=== PATIENT | female | born 1995 | race Caucasian/White ===

== ENCOUNTER 2019-08-30 11:49 | Outpatient (CLI) | payer OTHER, SELFPAY ==
--- NOTE | ~2019-08-30 | US_ITS ---
EXAMINATION: US breast RT limited HISTORY: Palpable lump of the lower right breast at the 6:00 location. TECHNIQUE: Limited right breast ultrasound is performed. FINDINGS: There is no evidence of focal abnormal cystic or solid mass in the vicinity of the reported palpable abnormality of concern. IMPRESSION: No specific sonographic correlate is identified for the reported palpable abnormality of concern. Fur ther evaluation at this time should be based on clinical assessment. Continued follow-up physical exa mination is recommended. BI-RADS Category 1: Negative Reviewed, dictated and finalized at location A. IMPRESSION: No specific sonographic correlate is identified for the reported palpable abnor mality of concern. Further evaluation at this time should be based on clinical assessment. Continued follow-up physical examination is recommended. BI-RADS Category 1: Negative
== END 2019-08-30 11:50 | disposition home or self-care (01) ==
PROVIDERS: PCP Family Medicine; Visit Provider Obstetrics & Gynecology
DX: N63.0 Unspecified lump in unspecified breast (principal)
CPT/HCPCS: 76642

== ENCOUNTER 2021-07-11 08:03 | Outpatient (CLI) | payer OTHER, SELFPAY ==
--- NOTE | ~2021-07-11 | US_ITS ---
EXAMINATION: US abdomen complete EXAM DATE: 07/11/2021 09:37 INDICATION: Upper abdominal pain. TECHNIQUE: Multiple grayscale and Doppler images of the complete abdomen were obtained (by a technolo gist who performed the scan) and subsequently reviewed. There is no prior study for comparison. FINDINGS: The abdominal aorta is normal in caliber. Visualized portion IVC is patent. The pancreatic head a nd body are normal in appearance. The pancreatic tail is not visualized. The liver has normal echogenicity and contour. There are no focal liver lesions identified. There is no evidence of intrahepatic biliary duct dilation. Portal venous flow was seen in the hepatopedal , normal direction and has normal Doppler waveform. Common bile duct measures 2 mm, which is normal. The gallbladder wall is normal in thickness, with ex pected amount of distention. No sonographic evidence of pericholecystic fluid. There is no cholelit hiases. Technologist performing exam reports patient did not demonstrate sonographic Way's sign. Please note that this sign is less reliable in patients who have received pain medication. Right kidney: There is normal contour and echogenicity. It measures 9.1 x 5.1 x 4.1 centimeters. T here are no focal renal lesions identified. There is no hydronephrosis. Left kidney: There is normal contour and echogenicity. It measures 9.4 x 5.0 x 5.1 centimeters. Th ere are no focal renal lesions identified. There is no hydronephrosis. The spleen measures 9.8 centimeters and is morphologically normal. IMPRESSION: 1. Unremarkable complete abdominal ultrasound exam. Reviewed, dictated and finalized at location B. [facility]ELOP[facility]
== END 2021-07-11 08:04 | disposition home or self-care (01) ==
PROVIDERS: Visit Provider Physician Assistant Medical
DX: R10.10 Upper abdominal pain, unspecified (principal)
CPT/HCPCS: 76700

== ENCOUNTER 2025-02-27 15:56 | Outpatient (CLI) | payer OTHER, SELFPAY ==
--- OUTSIDE RECORDS SUMMARY | 2025-02-27 16:33 | XMS_ITS | Encounter Summary ---
Author Organization [facility] Address [address] [place] [address] Phone Care Team Providers Care Airborne Operations Name Role Phone Don Chatman MD Primary Care Provider Caroline Yu APRN, REWEAVER Unavailable Reason for Visit * Reason Comments Medication Refill Encounter Details Date Type Department Care Team (Late st Contact Info) Description 02/01/2025 Refill [facility] - [facility] [address] [place] [address] Caroline Yu APRN, REWEAVER [address] [place] [address] Medication Refill Social History Tobacco Use Types Packs/Day Years Used Date Smoking Tobacco: Never Smokeless Tobacco: Never Alcohol Use Standard Drinks/Week Comments Yes 0 (1 standard drink = 0.6 oz pur e alcohol) Rare Sexually Active Control Partners Comments Yes Comments No Sex and Gender Information Value Date Recorded Sex Assigned at Not on file 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 Medication refused. documented in this encounter Plan of Treatment Not on file documented as of this encounter Visit Diagnoses Diagnosis Chronic constipation Unspecified constipation documented in this encounter Care Teams Airborne Operations Relationship Specialty Start Date End Date Don Chatman MD [address] [place] [id number] PCP - General Family Medicine 06/27/21 Caroline Yu APRN, REWEAVER [address] [place] [address] Nurse Practitioner Advanced Practice Nurse 05/16/22 documented as of this encounter
--- OUTSIDE RECORDS SUMMARY | 2025-02-27 16:33 | XMS_ITS | Clinical Summary ---
Author Organization [facility] Address [address] [place] [address] Care Team Providers Care Jewel Hole Cornerer Name Role Phone Don Chatman MD Primary Care Provider Source Comments [facility],non-owned Affiliates and Associated Physician Practices is amultiple site organization consisting of ambulatory clinics and hospital sitesin [place], [place], [place] and [place]. This disclosure is being madepursuant to the Care Everywhere program and may not contain all information available regarding this patient. Last updated 18.[facility] Allergies No known active allergies Medications * Be aware that medications may not be up to date on this document. Alwaysverify current medications with the patient. amphetamine-dex troamphetamine XR 24hr (ADDERALL XR) 10 MG capsule Take 1 (one) capsule by mouth every morning Active Vitamins-Lipotr opics (multiple vitamin) capsule Take by mouth once daily Active linaCLOtide (Linzess) 145 MCG capsule Take 1 (one) capsule by mouth daily before breakfast 3 Active promethazine (Phenergan) 25 MG tablet TAKE 1-2 TABLET BY MOUTH DAILY NEEDED FOR ACUTE MOTION SICKNESS PREVENTION 4 Active Active Problems Problem Noted Date Diagnosed Date fall01/25/2009 Immunizations Immunization Administration Dates Next Due DTaP VACCINE IM (6wk-6yrs) 06/12/1998,,1993,10/21,1993 FLU VACCINE TRI IIV3 SPLIT P F IM (FLUVIRIN) 07/06/2014,01/02/2010,05/06/2007,03/21 HEP A PEDS 2 DOSE 09/13/2005,09/16/2004 HEP A VACCINE, ADULT 04/20/2014 HEP B VACCINE, ADULT 3 DOSE 03/10/1994, 4,1993 HEP B VACCINE, PED/ADOL 03/10/1994,1993, HIB VACCINE 09/01/1994, 4,1993,08/05 HIB-PRP-T 4 DOSE 09/01/1994, 4,1993,08/05 Human Papilloma Virus Willis valent Vaccine 09/23/2007,03/08/2007,01/05/2007 Human Papilloma Virus Vaccine 09/23/2007, 007,01/05/2007 INFLUENZA VACCINE 01/02/2010,05/06/2007,03/21/20 03 INFLUENZA VACCINE, CELL CULT URE, TRIV. (FLUCELVAX TRIVALENT; 6MO+), 0.5 ML (CCIIV3) 03/30/2017 INFLUENZA VACCINE, QUADR. (F LUZONE; FLULAVAL; FLUARIX; AFLURIA QUADRIVALENT; 6MO+), 0.5 ML (IIV4) 02/21/2020 Influenza Intradermal 03/26/2016,03/13/2015 MENINGOCOCAL MENINGITIS 01/05/2007 MENINGOCOCCAL ACWY (MCV4P) VAC IM 12/16/2011 MMR 06/12/1998,06/09/1994 POLIO IPV 06/12/1998, 4,1993,08/05 TD (ADULT), 5 LF TETANUS TOX OID, ADSORBED, PF 09/16/2004 TD (AGE 7-ADULT) 07/01/2018 TD VACCINE 09/16/2004 TDAP (7yrs+) 12/21/2007 VARICELLA 12/27/2019,06/12/1997 iNFLUENZA VACCINE, RECOM-HELLER, QUADR. (FLUBLOCK QUADRIVALENT; 18Y+) (RIV4) 05/23/2019 Family History Medical History Relation Name Comments Hypertension Father CVA Maternal Grandmother Hypertension Mother Cancer - Ovarian Paternal Grandmother Relation Name Status Comments Father Maternal Grandmother Mother Paternal Grandmother Social History Tobacco Use Types Packs/Day Years Used Date Smoking Tobacco: Never Smokeless Tobacco: Never Tobacco Cessation:Counseling Given: Not Answered Alcohol Use Standard Drinks/Week Comments Yes 0 (1 standard drink = 0.6 oz pur e alcohol) social Comments No Sex and Gender Information Value Date Recorded Sex Assigned at Female 11/03/2023 4:18 PM CDT Legal Sex Female 4:34 AM SUPERVISOR REINFORCED STEEL PLACING Gender Identity Female 11/03/2023 4:18 PM CDT Sexual Orientation Choose not to disclose 2023 4:18 PM CDT 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 Not on file Not on file Not on file Last Filed Vital Signs Vital Sign Reading Time Taken Comments Blood Pressure 117/72 12/25/2023 2:16 PM CDT Pulse 89 12/25/2023 2:16 PM CDT Temperature 36.8 C (98.2 F) 05/31/2023 11:07 AM SUPERVISOR REINFORCED STEEL PLACING Respiratory Rate 18 05/31/2023 11:07 AM SUPERVISOR REINFORCED STEEL PLACING Oxygen Saturation 100% 05/31/2023 11:07 AM SUPERVISOR REINFORCED STEEL PLACING Inhaled Oxygen Concentration - - Weight 54 kg (119 lb) 12/25/2023 2:16 PM CDT Height 162.6 cm (5' 4) 12/25/2023 2:16 PM CDT Body Mass Index 20.43 12/25/2023 2:16 PM CDT Plan of Treatment Health Maintenance Due Date Last Done Comments HIV SCREENING 2008 HEPATITIS C SCREENING 06/03/2011 DEPRESSION SCREENING 06/01/2024 COVID-19 VACCINE ( season) 2025 07/24/2020, 06/26/2020 INFLUENZA VACCINE (#1) 2025 , 05/23/2019, 03/30/2017, Additional history exists PAP with HPV 05/29/2028 05/29/2023, 06/09/2013 DTAP/TDAP/TD VACCINES (10 - Td or Tdap) 07/01/2028 07/01/2018, 12/21/2007, 09/16/2004, Additional history exists ZOSTER VACCINE (1 of 2) 2043 HEPATITIS B VACCINE Completed 03/10/1994, 03/10/1994, 1993, Additional history exists HIB VACCINE Completed 09/01/1994, 0 07/1994, 1993, Additional history exists HPV VACCINE Completed 09/23/2007, 08/31, 03/08/2007, Additional history exists MENINGOCOCCAL GROUPS A/C/Y/W VACCINE Completed 12/16/2011, 01/05/2007 MENINGOCOCCAL (Group B) VACCINE SHARED DECISION-MAKING Aged Out No longer eligible based on patient's age to complete this topic PNEUMOCOCCAL VACCINE Aged Out No long er eligible based on patient's age to complete this topic Procedures Procedure Name Priority Date/Time Associated Diagnosis Comments PAP IG LB+HPV APTIMA Routine 05/29/2023 11:37 AM SUPERVISOR REINFORCED STEEL PLACING Well woman exam with routine gynecological exam from Last 3 Months or Most Recently Relevant to Health Maintenance Results * PAP IG LB+HPV APTIMA (05/29/2023 11:37 AM SUPERVISOR REINFORCED STEEL PLACING) Diagnosis [facility] INSURANCE BILL Comment:NEGATIVE FOR INTRAEP ITHELIAL LESION OR MALIGNANCY. Specimen Adequacy [facility] INSURANCE BILL Comment: Satisfactory for evaluation. Endocervical and/or squamous metaplastic cells (endocervical component) are present. Clinician Provided ICD10 [facility] INSURANCE BILL Comment:Z01.419 Performed by [facility] INSURANCE BILL Comment:Gali Johnson chnologist (ASCP) Comment . [facility] INSURANCE BILL Note [facility] INSURANCE BILL Comment: The Pap smear is a screening test designed to aid in the detection of premalignant and malignant conditions of the uterine cervix. It is not a diagnostic procedure and should not be used as the sole means of detecting cervical cancer. Both false-positive and false-negative reports do occur. . [facility] CPT Code Automation [facility] INSURANCE BILL Comment: This liquid based ThinPrep(R) pap test was screened with the use of an image guided system. Human papillomavirus Aptima Negative Negative [facility] INSURANCE BILL Comment: This nucleic acid amplification test detects fourteen high-risk HPV types (16,18,31,33,35,39,45,51,52,56,58,59,66,68) without differentiation. Pathology/Cytolog y PART OF UTERINE CERVIX / Unknown 05/29/2023 11:37 AM SUPERVISOR REINFORCED STEEL PLACING 06/02/2023 Narrative [facility] INSURANCE BILL - 06/03/2023 7:07 PM SUPERVISOR REINFORCED STEEL PLACING Source.............Cervix No. of containers..01 ThinPrep Vial Resulting Agency Comment Lab Testing performed at: [facility] [place] [phone] [place] Libby Morillo MD LAB - PATHOLOGY/CYTOLOGY ALINE GIPSON Final Result [facility] INSURANCE BILL [address] [place] [address] from Last 3 Months or Most Recently Relevant to Health Maintenance Care Teams Jewel Hole Cornerer Relationship Specialty Start Date End Date Don Chatman MD [address] [place] [phone] PCP - General Family Medicine 05/29/23
--- OUTSIDE RECORDS SUMMARY | 2025-02-27 16:33 | XMS_ITS | Encounter Summary ---
Author Organization [facility] Address [address] [place] [address] Phone Care Team Providers Care Sole Leather Cutting Machine Operator Name Role Phone Don Chatman MD Primary Care Provider [phone] Caroline Yu APRN, ROOFER Unavailable Reason for Visit * Reason Comments Medication Refill Encounter Details Date Type Department Care Team (Late st Contact Info) Description 11/12/2022 Refill [facility] - [facility]enter[facility] [address] [place] [phone] Caroline Yu APRN, ROOFER [address] [place] [address] Medication Refill Social History Tobacco Use Types Packs/Day Years Used Date Smoking Tobacco: Never Smokeless Tobacco: Never Alcohol Use Standard Drinks/Week Comments Yes 0 (1 standard drink = 0.6 oz pur e alcohol) Rare Sexually Active Control Partners Comments Yes Comments No Sex and Gender Information Value Date Recorded Sex Assigned at Not on file 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 Requested Prescriptions Pending Prescriptions Disp Refills Linzess 145 MCG Capsule [Pharmacy Med Name: [facility] 145MCG CAPSULES] 30 Capsule 2 Sig: TAKE 1 CAPSULE BY MOUTH EVERY MORNING BEFORE BREAKFAST IBS-C/CIC Protocol Failed - 11/12/2022 8:53 AM Failed - Active on medication list Passed - Visit with relevant provider in past 12 months or upcoming 90 days Recent Visits Date Type Provider Dept 08/18/22 Office Visit Caroline Yu APRN, CNP [facility] 05/16/22 Office Visit Caroline Yu APRN, [facility] Showing recent visits within past 365 days and meeting all other requirements Future Appointments No visits were found meeting these conditions. Showing future appointments within next 90 days and meeting all other requirements * Telephone Encounter - Wandy Barnes RN - 11/12/2022 3:11 PM CDT Medication failed protocol. Routing to provider for review. documented in this encounter Plan of Treatment Not on file documented as of this encounter Visit Diagnoses Diagnosis Chronic constipation Unspecified constipation documented in this encounter Care Teams Sole Leather Cutting Machine Operator Relationship Specialty Start Date End Date Don Chatman MD [address] [place] [phone] PCP - General Family Medicine 06/27/21 Caroline Yu APRN, [facility] [address] [place] [address] Nurse Practitioner Advanced Practice Nurse 05/16/22 documented as of this encounter
--- OUTSIDE RECORDS SUMMARY | 2025-02-27 16:33 | XMS_ITS | Encounter Summary ---
Author Organization [facility] Address [address] [place] [address] Phone Care Team Providers Care Testing And Regulating Chief Name Role Phone Don Chatman MD Primary Care Provider Caroline Yu APRN, COUNSELING SPECIALIST Unavailable Reason for Visit * Reason Comments Medication Refill Encounter Details Date Type Department Care Team (Late st Contact Info) Description 11/17/2023 Refill [facility] - [facility] [address] [place] [phone] Caroline Yu APRN, COUNSELING SPECIALIST [address] [place] [address] Medication Refill Social History Tobacco Use Types Packs/Day Years Used Date Smoking Tobacco: Never Smokeless Tobacco: Never Alcohol Use Standard Drinks/Week Comments Yes 0 (1 standard drink = 0.6 oz pur e alcohol) Rare Sexually Active Control Partners Comments Yes Comments No Sex and Gender Information Value Date Recorded Sex Assigned at Not on file 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 documented in this encounter Plan of Treatment Not on file documented as of this encounter Visit Diagnoses Diagnosis Chronic constipation Unspecified constipation documented in this encounter Care Teams Testing And Regulating Chief Relationship Specialty Start Date End Date Don Chatman MD [address] [place] [phone] PCP - General Family Medicine 06/27/21 Caroline Yu, FLAKER TENDER, COUNSELING SPECIALIST [address] [place] [address] Nurse Practitioner Advanced Practice Nurse 05/16/22 documented as of this encounter
--- OUTSIDE RECORDS SUMMARY | 2025-02-27 16:33 | XMS_ITS | Encounter Summary ---
Author Organization [facility] Address [address] [place] [address] Phone Care Team Providers Care Cabinet Abrasive Sandblaster Name Role Phone Don Chatman MD Primary Care Provider Caroline Yu APRN, TIRE TRIMMER HAND Unavailable Reason for Visit * Reason Comments Medication Refill Encounter Details Date Type Department Care Team (Late st Contact Info) Description 05/12/2023 Refill [facility] - Gastroenter[facility] [address] [place] [phone] Caroline Yu APRN, TIRE TRIMMER HAND [address] [place] [address] Medication Refill Social History Tobacco Use Types Packs/Day Years Used Date Smoking Tobacco: Never Smokeless Tobacco: Never Alcohol Use Standard Drinks/Week Comments Yes 0 (1 standard drink = 0.6 oz pur e alcohol) Rare Sexually Active Control Partners Comments Yes Comments No Sex and Gender Information Value Date Recorded Sex Assigned at Not on file Legal Sex Female 3:32 PM ED MANAGER Gender Identity Not on file Sexual Orientation Not on file documented as of this encounter Miscellaneous Notes * Telephone Encounter - Wandy Barnes RN - 05/12/2023 2:30 PM ED MANAGER Medication refilled and signed per [facility] chronic medication standing order for pediatric and adult patients. MANAGER documented in this encounter Plan of Treatment Not on file documented as of this encounter Visit Diagnoses Diagnosis Chronic constipation Unspecified constipation documented in this encounter Care Teams Cabinet Abrasive Sandblaster Relationship Specialty Start Date End Date Don Chatman MD [address] [place] [address] PCP - General Family Medicine 06/27/21 Caroline Yu APRN, TIRE TRIMMER HAND [address] [place] [address] Nurse Practitioner Advanced Practice Nurse 05/16/22 documented as of this encounter
--- OUTSIDE RECORDS SUMMARY | 2025-02-27 16:33 | XMS_ITS | Encounter Summary ---
Author Organization [facility] Address [address] [place] [address] Phone Care Team Providers Care Relief Worker Name Role Phone Don Chatman MD Primary Care Provider Caroline Yu APRN, MANAGER PORT Unavailable Reason for Visit * Reason Comments Medication Refill Encounter Details Date Type Department Care Team (Late st Contact Info) Description 08/20/2023 Refill [facility] - [facility]enter[facility] [address] [place] [phone] Caroline Yu APRN, MANAGER PORT [address] [place] [address] Medication Refill Social History Tobacco Use Types Packs/Day Years Used Date Smoking Tobacco: Never Smokeless Tobacco: Never Alcohol Use Standard Drinks/Week Comments Yes 0 (1 standard drink = 0.6 oz pur e alcohol) Rare Sexually Active Control Partners Comments Yes Comments No Sex and Gender Information Value Date Recorded Sex Assigned at Not on file Legal Sex Female 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 * Telephone Encounter - Wandy Barnes RN - 08/20/2023 3:47 PM CDT Spoke with patient, appt scheduled for 09/22/2023. * Telephone Encounter - Wandy Barnes RN - 08/20/2023 2:43 PM CDT Medication failed protocol due to patient needs an appt. Called patient to offer an apt. Left message to call back. Linzess pended. documented in this encounter Plan of Treatment Not on file documented as of this encounter Visit Diagnoses Diagnosis Chronic constipation Unspecified constipation documented in this encounter Care Teams Relief Worker Relationship Specialty Start Date End Date Don Chatman MD [address] [place] [phone] PCP - General Family Medicine 06/27/21 Caroline Yu APRN, JESSICA [address] [place] [address] Nurse Practitioner Advanced Practice Nurse 05/16/22 documented as of this encounter
--- OUTSIDE RECORDS SUMMARY | 2025-02-27 16:33 | XMS_ITS | Encounter Summary ---
Author Organization [facility] Address [address] [place] [address] Phone Care Team Providers Care In Store Marketer Name Role Phone Don Chatman MD Primary Care Provider Caroline Yu APRN, INTELLIGENCE CONSULTANT Unavailable Reason for Visit * Reason Comments Medication Refill Encounter Details Date Type Department Care Team (Late st Contact Info) Description 01/23/2025 Refill [facility] - [facility] [address] [place] [phone] Caroline Yu APRN, INTELLIGENCE CONSULTANT [address] [place] [address] Medication Refill Social History Tobacco Use Types Packs/Day Years Used Date Smoking Tobacco: Never Smokeless Tobacco: Never Alcohol Use Standard Drinks/Week Comments Yes 0 (1 standard drink = 0.6 oz pur e alcohol) Rare Sexually Active Control Partners Comments Yes Comments No Sex and Gender Information Value Date Recorded Sex Assigned at Not on file 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 * Telephone Encounter - Wandy Barnes RN - 01/25/2025 9:54 AM CDT Pharmacy requesting refill of: Requested Prescriptions Pending Prescriptions Disp Refills Linzess 145 MCG Capsule [Pharmacy Med Name: LINZESS 145MCG CAPSULES] 90 Capsule 3 Sig: TAKE 1 CAPSULE BY MOUTH EVERY MORNING BEFORE BREAKFAST Last fill: 12/24/2023 Patients last OV with GI: 11/03/2023 Next Office Visit with GI: 02/14/2025 documented in this encounter Plan of Treatment Not on file documented as of this encounter Visit Diagnoses Diagnosis Chronic constipation Unspecified constipation documented in this encounter Care Teams In Store Marketer Relationship Specialty Start Date End Date Don Chatman MD [address] [place] [id number] PCP - General Family Medicine 06/27/21 Caroline Yu APRN, INTELLIGENCE CONSULTANT [address] [place] [address] Nurse Practitioner Advanced Practice Nurse 05/16/22 documented as of this encounter
--- OUTSIDE RECORDS SUMMARY | 2025-02-27 16:33 | XMS_ITS | Encounter Summary ---
Author Organization [facility] Address [address] [place] [address] Phone Care Team Providers Care Insecticide Maker Name Role Phone Don Chatman MD Primary Care Provider [phone] Caroline Yu APRN, LAYOUT WORKER Unavailable Reason for Visit * Reason Comments Medication Refill Encounter Details Date Type Department Care Team (Late st Contact Info) Description 01/24/2023 Refill [facility] [address] [place] [phone] Caroline Yu APRN, LAYOUT WORKER [address] [place] [address] Medication Refill Social History Tobacco Use Types Packs/Day Years Used Date Smoking Tobacco: Never Smokeless Tobacco: Never Alcohol Use Standard Drinks/Week Comments Yes 0 (1 standard drink = 0.6 oz pur e alcohol) Rare Sexually Active Control Partners Comments Yes Comments No Sex and Gender Information Value Date Recorded Sex Assigned at Not on file Legal Sex Female 3:32 PM AGRICULTURAL TECHNICAL OFFICER Gender Identity Not on file Sexual Orientation Not on file documented as of this encounter Miscellaneous Notes * Telephone Encounter - Wandy Barnes RN - 01/26/2023 9:15 AM CDT Medication refilled and signed per [facility] chronic medication standing order for pediatric and adult patients. documented in this encounter Plan of Treatment Not on file documented as of this encounter Visit Diagnoses Diagnosis Chronic constipation Unspecified constipation documented in this encounter Care Teams Insecticide Maker Relationship Specialty Start Date End Date Don Chatman MD [address] [place] [address] PCP - General Family Medicine 06/27/21 Caroline Yu, FIRMWARE ARCHITECT, LAYOUT WORKER [address] [place] [address] Nurse Practitioner Advanced Practice Nurse 05/16/22 documented as of this encounter
--- OUTSIDE RECORDS SUMMARY | 2025-02-27 16:33 | XMS_ITS | Clinical Summary ---
Author Organization [facility] Address [address] [place] [address] Phone Care Team Providers Care Duct Maker Name Role Phone Don Chatman MD Primary Care Provider [phone] Caroline Yu APRN, DISK RECOATER Unavailable Allergies No known active allergies Medications amphetamine-dext roamphetamine (ADDERALL XR) 10 MG CAPSULE SR 24 HR Take 10 mg by mouth daily. 0 Active Probiotic Product (PROBIOTIC DAILY PO) Take by mouth. Activ e Multiple Vitamin (MULTI-VITAMIN PO) Take by mouth daily. Active promethazine (PHENERGAN) 25 MG Tablet TAKE 1-2 TABLET BY MOUTH DAILY NEEDED FOR ACUTE MOTION SICKNESS PREVENTION 4 Active Vitamins-Lipotro pics (Multi-Vitamin HP/Minerals) Capsule Take by mouth. Activ e Linzess 145 MCG CapsuleIndicatio ns:Chronic constipation TAKE 1 CAPSULE BY MOUTH EVERY MORNING BEFORE BREAKFAST 90 Capsule 5 Active omeprazole (PriLOSEC) 20 MG CAPSULE DELAYED RELEASE Take 20 mg by mouth if needed for Other (refux). Active famotidine (PEPCID) 20 MG Tablet Take 1 Tablet by mouth 2 times daily. 60 Tablet 3 2 025 Discontin ued(Med List Clean Up) amoxicillin (AMOXIL) 500 MG Capsule TAKE ONE CAPSULE BY MOUTH EVERY 6 HOURS 2 025 Discontin ued(Med List Clean Up) Active Problems No known active problems Encounters Date Type Department Care Team Description 02/14/2025 2:00 PM CDT Office Visit [facility] [address] [place] [address] Caroline Yu APRN, JESSICA Chronic constipation (Primary Dx) Discharge Disposition: Discharged to home or Selfcare 02/14/2025 Travel 02/01/2025 Refill [facility] [place] [address] Caroline Yu APRN, JESSICA Medication Refill 01/24/2025 MyChart RX Renewal [facility] [address] [place] [address] Caroline Yu APRN, JESSICA Medication Renewal Declined 01/23/2025 Refill [facility] [address] [place] [address] Caroline Yu APRN, JESSICA Medication Refill from Last 3 Months Immunizations Immunization Administration Dates Next Due DTAP VACCINE 06/12/1998, 5,1993,10/21,1993 HIB Vaccine (PRP-T) 09/01/1994, 4,1993,08/05 Hepatitis A Vaccine, Pediatric/adolescent, 2 Dose Schedule 09/13/2005,09/16/2004 Hepatitis B Vaccine 03/10/1994,1993,1993 Hepatitis B Vaccine, Pediatric/adolescent 03/10/1994,1993,1993 Hib Vaccine,unspecified Formulation 07/1994,1993,1993,08/05 Hpv, Unspecified Formulation 09/23/2007,03/08/20 07,01/05/2007 Human Papillomavirus Vaccine (HPV), quadrivalent 09/23/2007,03/08/2007,01/05/2007 Inactivated Polio Vaccine 06/12/1998,04/1994,1993,08/05 Influenza Seasonal, Intrader mal, Preservative Free 03/26/2016,03/13/2015 Influenza Vaccine 07/06/2014, 0,05/06/2007,03/21 Influenza Vaccine, Quadrivalent, PF 02/21/2020 Influenza Vaccine,unspecifie d Formulation 01/02/2010,05/06/2007,03/21/2003 Influenza, Injectable, Mdck, Preservative Free 03/30/2017 Influenza, Recombinant, Quadrivalent,injectable, Pf 05/23/2019 MMR Vaccine 06/12/1998,06/09/1994 Meningococcal Polysaccharide Vaccine (MPSV4) 01/05/2007 Meningococcal Vaccine 12/16/2011 TD VACCINE 07/01/2018 TDAP Vaccine 12/21/2007 Td Vaccine (preservative free) 09/16/2004 Td, Unspecified Formulation 09/16/2004 Varicella Vaccine Live 12/27/2019,06/12/1997 Family History Medical History Relation Name Comments High Cholesterol Father Hypertension Father Hypertension Mother Colon Cancer Paternal Grandmother Relation Name Status Comments Father Mother Paternal Grandmother Social History Tobacco Use Types Packs/Day Years Used Date Smoking Tobacco: Never Smokeless Tobacco: Never Tobacco Cessation:Counseling Given: Not Answered Alcohol Use Standard Drinks/Week Comments Yes 0 (1 standard drink = 0.6 oz pur e alcohol) Rare Sexually Active Control Partners Comments Yes None Female Comments No Sex and Gender Information Value Date Recorded Sex Assigned at Not on file 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 Gender Identity Not on file Sexual Orientation Not on file Last Filed Vital Signs Vital Sign Reading Time Taken Comments Blood Pressure 100/80 02/14/2025 1:08 PM CDT Pulse 78 02/14/2025 1:08 PM CDT Temperature 36.7 C (98 F) 02/14/2025 1:08 PM CDT Respiratory Rate 16 02/14/2025 1:08 PM CDT Oxygen Saturation 98% 02/14/2025 1:08 PM CDT Inhaled Oxygen Concentration - - Weight 54.3 kg (119 lb 11.2 oz) 02/14/2025 1:08 PM CDT Height 162.6 cm (5' 4) 02/14/2025 1:08 PM CDT Body Mass Index 20.55 02/14/2025 1:08 PM CDT Plan of Treatment Health Maintenance Due Date Last Done Comments Hepatitis C Virus (HCV) Screening 1993 Pap Smear 2014 Cervical Cancer Screening (CCS) 2023 HPV/Cotest 2023 Influenza Immunization (#1) 2025 11/0 01/2024, 02/21/2020, 05/23/2019, Additional history exists SARS-COV-2 Immunization ( - 2024- season) 2025 07/24/2020, 06/26/2020 DTaP/Tdap/Td Immunization (8 - Td or Tdap) 07/01/2028 07/01/2018, 12/21/2007, 09/16/2004, Additional history exists Respiratory Syncytial Virus (RSV) Immunization (Adult) (1 - 1-dose 75+ series) 2068 Hepatitis B Immunization Completed 994, 03/10/1994, 1993, Additional history exists Human Papillomavirus (HPV) Immunization Completed 09/23/2007, 09/23/2007, 03/08/2007, Additional history exists Meningococcal Immunization (ACWY) Completed 12/16/2011, 01/05/2007 Pneumococcal Immunization Combined Aged Out No longer eligible based on patient's age to complete this topic Rotavirus Immunization Aged Out No lo nger eligible based on patient's age to complete this topic Insurance [facility] Care Teams Duct Maker Relationship Specialty Start Date End Date Don Chatman MD [address] [place] [address] PCP - General Family Medicine 06/27/21 Caroline Yu APRN, DISK RECOATER [address] [place] [address] Nurse Practitioner Advanced Practice Nurse 05/16/22
[2025-02-28 07:09] LABS: Cytomegalovirus (CMV) Ab, IgG <0.60 U/mL (0.00-0.59); Cytomegalovirus (CMV) Ab, IgM <30.0 AU/mL (0.0-29.9)
== END 2025-02-27 15:57 | disposition home or self-care (01) ==
LOC: ANHLAB 15:56
PROVIDERS: Visit Provider Nurse Practitioner Obstetrics & Gynecology
DX: N97.9 Female infertility, unspecified (principal)
CPT/HCPCS: 86644; 86645

== ENCOUNTER 2025-02-27 20:48 | Emergency (ER) | payer OTHER, SELFPAY ==
--- NOTE | ~2025-02-27 | CT_ITS ---
EXAMINATION: CT abdomen pelvis w con DATE: 02/27/2025 21:29 INDICATION: Left lower quadrant and right upper quadrant abdominal pain. Nausea and vomiting. TECHNIQUE: Computed tomography (CT) of the abdomen and pelvis was performed with 100 mL Omnipaque-350 intravenous contrast. Automated exposure control and iterative reconstruction technique were employed. The dose-length product was 210.30 mGy-cm. COMPARISON: None FINDINGS: Lung bases are clear. Visualized inferior heart is normal. No pericardial or pleural effusion. Liver, gallbladder, spleen, pancreas, bilateral adrenal glands and kidneys are normal. Diffuse colonic wall thickening consistent with colitis. No bowel obstruction. The appendix is not visualized. No pericecal inflammatory change to suggest acute appendicitis. Bladder, anteverted uterus and bilateral adnexa are unremarkable. Small amount of ascites in the deep pelvis which could be reactive or physiologic. No abscess or free intraperitoneal gas. No pathologically enlarged mild lower thoracic spondylosis. lymphadenopathy. IMPRESSION: 1. Pancolitis which could be infectious or inflammatory in etiology. 2. Small amount of ascites in the deep pelvis which could be reactive or physiologic. Reviewed, dictated and finalized at location A. IMPRESSION: 1. Pancolitis which could be infectious or inflammatory in etiology. 2. Small amount of ascites in the deep pelvis which could be reactive or physio logic.
--- OUTSIDE RECORDS SUMMARY | 2025-02-27 20:51 | XMS_ITS | Encounter Summary ---
Author Organization [facility] Address [address] [place] [address] Phone Care Team Providers Care Kohinoor Operator Name Role Phone Don Chatman MD Primary Care Provider Caroline Yu APRN, WALL TAPER HELPER Unavailable Reason for Visit * Reason Comments Medication Refill Encounter Details Date Type Department Care Team (Late st Contact Info) Description 08/20/2023 Refill [facility] - [facility] [address] [place] [phone] Caroline Yu APRN, WALL TAPER HELPER [address] [place] [address] Medication Refill Social History Tobacco Use Types Packs/Day Years Used Date Smoking Tobacco: Never Smokeless Tobacco: Never Alcohol Use Standard Drinks/Week Comments Yes 0 (1 standard drink = 0.6 oz pur e alcohol) Rare Sexually Active Control Partners Comments Yes Comments No Sex and Gender Information Value Date Recorded Sex Assigned at Not on file 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 Gender Identity Not on file Sexual Orientation Not on file documented as of this encounter Miscellaneous Notes * Telephone Encounter - Wandy Barnes RN - 08/20/2023 3:48 PM CDT Medication refilled and signed [facility] [place] medication standing order [...] constipation documented in this encounter Care Teams Kohinoor Operator Relationship Specialty Start Date End Date Don Chatman MD [address] [place] [address] PCP - General Family Medicine 06/27/21 Caroline Yu APRN, JESSICA [address] [place] [address] Nurse Practitioner Advanced Practice Nurse 05/16/22 documented as of this encounter
--- OUTSIDE RECORDS SUMMARY | 2025-02-27 20:51 | XMS_ITS | Encounter Summary ---
Author Organization [facility] Address [address] [place] [address] Phone Care Team Providers Care Mathematics Improvement Teacher Name Role Phone Don Chatman MD Primary Care Provider Caroline Yu APRN, PLASTIC OUTFITTER Unavailable Reason for Visit * Reason Comments Medication Refill Encounter Details Date Type Department Care Team (Late st Contact Info) Description 11/17/2023 Refill [facility] - [facility]astroenterology [facility] [address] [place] [phone] Caroline Yu APRN, PLASTIC OUTFITTER [address] [place] [address] Medication Refill Social History Tobacco Use Types Packs/Day Years Used Date Smoking Tobacco: Never Smokeless Tobacco: Never Alcohol Use Standard Drinks/Week Comments Yes 0 (1 standard drink = 0.6 oz pur e alcohol) Rare Sexually Active Control Partners Comments Yes Comments No Sex and Gender Information Value Date Recorded Sex Assigned at Not on file 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 documented in this encounter Plan of Treatment Not on file documented as of this encounter Visit Diagnoses Diagnosis Chronic constipation Unspecified constipation documented in this encounter Care Teams Mathematics Improvement Teacher Relationship Specialty Start Date End Date Don Chatman MD [address] [place] [address] PCP - General Family Medicine 06/27/21 Caroline Yu, FUEL CELL ASSEMBLER, PLASTIC OUTFITTER [address] [place] [address] Nurse Practitioner Advanced Practice Nurse 05/16/22 documented as of this encounter
--- OUTSIDE RECORDS SUMMARY | 2025-02-27 20:51 | XMS_ITS | Clinical Summary ---
Author Organization [facility] Address [address] [facility] [place] [address] Care Team Providers Care Cold Reduction Roller Name Role Phone Don Chatman MD Primary Care Provider [phone] Source Comments [facility],non-owned Affiliates and Associated Physician Practices is amultiple site organization consisting of ambulatory clinics and hospital sitesin [place], [place], [place] and [place]. This disclosure is being madepursuant to the Care Everywhere program and may not contain all information available regarding this patient. Last updated 18.[facility] Allergies No known active allergies Medications * [...] PM CDT Legal Sex Female 4:34 AM LEAD JAVASCRIPT DEVELOPER Gender Identity Female 11/03/2023 4:18 PM CDT [...] 36.8 C (98.2 F) 05/31/2023 11:07 AM LEAD JAVASCRIPT DEVELOPER Respiratory Rate 18 05/31/2023 11:07 AM LEAD JAVASCRIPT DEVELOPER Oxygen Saturation 100% 05/31/2023 11:07 AM LEAD JAVASCRIPT DEVELOPER Inhaled Oxygen Concentration - - Weight 54 [...] IG LB+HPV APTIMA Routine 05/29/2023 11:37 AM LEAD JAVASCRIPT DEVELOPER Well woman exam with routine gynecological exam from Last 3 Months or Most Recently Relevant to Health Maintenance Results * PAP IG LB+HPV APTIMA (05/29/2023 11:37 AM LEAD JAVASCRIPT DEVELOPER) Diagnosis [facility] INSURANCE BILL Comment:NEGATIVE FOR INTRAEP ITHELIAL LESION OR MALIGNANCY. Specimen Adequacy [facility] INSURANCE BILL Comment: Satisfactory for evaluation. Endocervical and/or squamous metaplastic cells (endocervical component) are present. Clinician Provided ICD10 [facility] INSURANCE BILL Comment:Z01.419 Performed by [facility] INSURANCE BILL Comment:Gali Johnson chnologist (ASCP) Comment [...] UTERINE CERVIX / Unknown 05/29/2023 11:37 AM LEAD JAVASCRIPT DEVELOPER 06/02/2023 Narrative [facility] INSURANCE BILL - 06/03/2023 7:07 PM LEAD JAVASCRIPT DEVELOPER Source.............Cervix No. of containers..01 ThinPrep Vial Resulting Agency Comment Lab Testing performed at: [address] [place] [id number] [place] Libby Morillo MD LAB - PATHOLOGY/CYTOLOGY ALINE GIPSON Final Result [facility] INSURANCE BILL [address] [place] [address] from Last 3 Months or Most Recently Relevant to Health Maintenance Care Teams Cold Reduction Roller Relationship Specialty Start Date End Date Don Chatman MD [address] [place] [phone] PCP - General Family Medicine 05/29/23
--- OUTSIDE RECORDS SUMMARY | 2025-02-27 20:51 | XMS_ITS | Encounter Summary ---
Author Organization [facility] Address [address] [place] [address] Phone Care Team Providers Care Primary Education Professor Name Role Phone Don Chatman MD Primary Care Provider Caroline Yu APRN, POSTAL MAIL CARRIER Unavailable Reason for Visit * Reason Comments Medication Refill Encounter Details Date Type Department Care Team (Late st Contact Info) Description 02/01/2025 Refill [facility] - Gastroenter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
--- OUTSIDE RECORDS SUMMARY | 2025-02-27 20:51 | XMS_ITS | Encounter Summary ---
Author Organization [facility] Address [address] [place] [address] Phone Care Team Providers Care Product Engineer Name Role Phone Don Chatman MD Primary Care Provider [phone] Caroline Yu APRN, PATTERN GATER Unavailable Reason for Visit * Reason Comments Medication Refill Encounter Details Date Type Department Care Team (Late st Contact Info) Description 05/12/2023 Refill [facility] - [facility] [address] [place] [phone] Caroline Yu APRN, PATTERN GATER [address] [place] [address] Medication Refill Social History Tobacco Use Types Packs/Day Years Used Date Smoking Tobacco: Never Smokeless Tobacco: Never Alcohol Use Standard Drinks/Week Comments Yes 0 (1 standard drink = 0.6 oz pur e alcohol) Rare Sexually Active Control Partners Comments Yes Comments No Sex and Gender Information Value Date Recorded Sex Assigned at Not on file 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 MOTIVE STARTER REPAIRER documented in this encounter Plan of Treatment Not on file documented as of this encounter Visit Diagnoses Diagnosis Chronic constipation Unspecified constipation documented in this encounter Care Teams Product Engineer Relationship Specialty Start Date End Date Don Chatman MD [address] [place] [address] PCP - General Family Medicine 06/27/21 Caroline Yu APRN, PATTERN GATER [address] [place] [address] Nurse Practitioner Advanced Practice Nurse 05/16/22 documented as of this encounter
--- OUTSIDE RECORDS SUMMARY | 2025-02-27 20:51 | XMS_ITS | Encounter Summary ---
Author Organization [facility] Address [address] [place] [address] Phone Care Team Providers Care Glass Breaker Name Role Phone Don Chatman MD Primary Care Provider Caroline Yu APRN, KNITTING MACHINE TENDER Unavailable Reason for Visit * Reason Comments Medication Refill Encounter Details Date Type Department Care Team (Late st Contact Info) Description 01/24/2023 Refill [facility] - [facility] [address] [place] [phone] Caroline Yu APRN, KNITTING MACHINE TENDER [address] [place] [address] Medication Refill Social History Tobacco Use Types Packs/Day Years Used Date Smoking Tobacco: Never Smokeless Tobacco: Never Alcohol Use Standard Drinks/Week Comments Yes 0 (1 standard drink = 0.6 oz pur e alcohol) Rare Sexually Active Control Partners Comments Yes Comments No Sex and Gender Information Value Date Recorded Sex Assigned at Not on file 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 documented in this encounter Plan of Treatment Not on file documented as of this encounter Visit Diagnoses Diagnosis Chronic constipation Unspecified constipation documented in this encounter Care Teams Glass Breaker Relationship Specialty Start Date End Date Don Chatman MD [address] [place] [address] PCP - General Family Medicine 06/27/21 Caroline Yu, GIS CONSULTANT, KNITTING MACHINE TENDER [address] [place] [address] Nurse Practitioner Advanced Practice Nurse 05/16/22 documented as of this encounter
--- OUTSIDE RECORDS SUMMARY | 2025-02-27 20:51 | XMS_ITS | Encounter Summary ---
Author Organization [facility] Address [address] [place] [address] Phone Care Team Providers Care Loader Machine Name Role Phone Don Chatman MD Primary Care Provider [phone] Caroline Yu APRN, RETAIL SALES CLERK Unavailable Reason for Visit * Reason Comments Medication Refill Encounter Details Date Type Department Care Team (Late st Contact Info) Description 11/12/2022 Refill [facility] - Gastro[facility] [address] [place] [phone] Caroline Yu APRN, RETAIL SALES CLERK [address] [place] [address] Medication Refill Social History Tobacco Use Types Packs/Day Years Used Date Smoking Tobacco: Never Smokeless Tobacco: Never Alcohol Use Standard Drinks/Week Comments Yes 0 (1 standard drink = 0.6 oz pur e alcohol) Rare Sexually Active Control Partners Comments Yes Comments No Sex and Gender Information Value Date Recorded Sex Assigned at Not on file Legal Sex Female 3:32 PM PEDICURIST Gender Identity Not on file Sexual Orientation [...] constipation documented in this encounter Care Teams Loader Machine Relationship Specialty Start Date End Date Don Chatman MD [address] [place] [address] PCP - General Family Medicine 06/27/21 Caroline Yu APRN, JESSICA [address] [place] [address] Nurse Practitioner Advanced Practice Nurse 05/16/22 documented as of this encounter
--- OUTSIDE RECORDS SUMMARY | 2025-02-27 20:51 | XMS_ITS | Encounter Summary ---
Author Organization [facility] Address [address] [place] [address] Phone Care Team Providers Care Order Control Clerk Blood Bank Name Role Phone Don Chatman MD Primary Care Provider [phone] Caroline Yu APRN, TECHNICAL SERVICES MANAGER Unavailable Reason for Visit * Reason Comments Medication Refill Encounter Details Date Type Department Care Team (Late st Contact Info) Description 01/23/2025 Refill [facility] - G[facility] [address] [place] [phone] Caroline Yu APRN, TECHNICAL SERVICES MANAGER [address] [place] [address] Medication Refill Social History Tobacco Use Types Packs/Day Years Used Date Smoking Tobacco: Never Smokeless Tobacco: Never Alcohol Use Standard Drinks/Week Comments Yes 0 (1 standard drink = 0.6 oz pur e alcohol) Rare Sexually Active Control Partners Comments Yes Comments No Sex and Gender Information Value Date Recorded Sex Assigned at Not on file 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 Gender Identity Not on file Sexual Orientation Not on file documented as of this encounter Miscellaneous Notes * Telephone Encounter - Wandy Barnes RN - 01/25/2025 9:57 AM CDT [facility] order for pediatric and [...] constipation documented in this encounter Care Teams Order Control Clerk Blood Bank Relationship Specialty Start Date End Date Don Chatman MD [address] [place] [address] PCP - General Family Medicine 06/27/21 Caroline Yu APRN, TECHNICAL SERVICES MANAGER [address] [place] [address] Nurse Practitioner Advanced Practice Nurse 05/16/22 documented as of this encounter
[2025-02-27 20:54] VITALS: BP 141/94; PULSE 106; RESP 20; O2SAT 100
--- NOTE | 2025-02-27 21:01 | ED.ABDPAIN ---
HPI - Abdominal Pain General Chief Complaint: Abdominal Pain Stated Complaint: abd pain Time Seen by Provider: 02/27/25 20:50 Source: patient Mode of arrival: ambulatory Limitations: no limitations History of Present Illness HPI narrative: Patient is a 29 y/o female, with PMH of IBS, who presents to the ED with c/o ABD pain. Patient reports she has been having intermittent cramping pain throughout her left lower abdomen, right upper abdomen for the past 2 days. Reports pain has been severe at times to the point of causing dizziness. Worse with eating. Reports nausea with intermittent vomiting. Reports decreased appetite. Reports mucus stools. Denies rectal bleeding or melena. Denies fevers, but does report chills. Follows with GI at outside hospital for her IBS. Is prescribed Linzess for occasional constipation. Did take a laxative yesterday and had a bowel movement, but denied improvement of pain. Related Data Home Medications ?Medication ?Instructions ?Recorded ?Confirmed ?Last Taken ?Type dextroamphetamine-amphetamine 10 10 mg PO DAILY 07/18/19 04/08/21 Unknown History mg tablet (Adderall) lactobacillus combination no.8 3 3,000 mmu cells PO DAILY 07/18/19 04/08/21 Unknown History billion cell capsule (Adult Probiotic) lisdexamfetamine 20 mg chewable 20 mg PO DAILY 08/20/20 04/08/21 Unknown History tablet (Vyvanse) Allergies Allergy/AdvReac Type Severity Reaction Status Date / Time No Known Allergies Allergy Verified 02/27/25 21:01 Review of Systems Review of Systems: All systems reviewed & are unremarkable except as noted in HPI. All systems reviewed & are unremarkable except as noted in HPI and below PMFSH Past Medical History Medical History Abnormal Pap smear of cervix 08/20/20, ASCUS HPV pos Breast mass ADD (attention deficit disorder) Surgical History Surgical History [place] teeth removed History of tonsillectomy History of right breast biopsy Family History Family History Grandparent Cervical cancer Cerebrovascular accident Father Hypertension Mother Hypertension Social History Social History Smoking status: Never smoker Alcohol intake: current Drinks per week: 1 Substance use: never Exam Narrative: GENERAL: Uncomfortable appearing, thin with BMI of 20.4, non-toxic, in no acute distress. HEAD: Normocephalic, atraumatic. RESPIRATORY: Airway patent, respirations nonlabored. Clear to auscultation bilaterally, no rales, rhonchi, wheezing. CARDIOVASCULAR: Tachycardic with regular rhythm without murmurs, rubs, or gallops. ABDOMINAL: Soft, TTP in LUQ, L mid abd, nondistended. Normoactive BS. MUSCULOSKELETAL: Moves all extremities. No gross deformities. SKIN: Warm, dry, normal color. NEURO: A&O X3. Speech clear. Cranial nerves II-XII grossly intact. Steady gait. No ataxic movements. PSYCHIATRIC: Appropriate mood and affect. Normal interaction. Course Vital Signs Vital signs: Vital Signs Pulse Rate 106 H 02/27/25 20:54 Respiratory Rate 20 02/27/25 20:54 Blood Pressure 141/94 H 02/27/25 20:54 Pulse Oximetry 100 02/27/25 20:54 Oxygen Delivery Room Air 02/27/25 20:54 Pulse Rate 106 H 02/27/25 20:54 Respiratory Rate 20 02/27/25 20:54 Blood Pressure 141/94 H 02/27/25 20:54 Pulse Oximetry 100 02/27/25 20:54 Oxygen Delivery Room Air 02/27/25 20:54 MDM - Abdominal Pain MDM Narrative Medical decision making narrative: Patient presented to ED with left lower quadrant, right upper quadrant abdominal pain over the past couple of days, nausea with vomiting. History of IBS. Patient mildly tachycardic upon arrival. Mildly uncomfortable appearing. Laboratory studies are fairly unremarkable. No leukocytosis or anemia. Sodium 134, otherwise stable electrolytes. Stable kidney function. Normal LFTs and lipase. UA with trace ketones, no signs of infection. Fluids ongoing. Urine is negative. CT of abdomen/pelvis obtained and showing evidence of freitas colitis, small amount of reactive pelvic ascites. Normal adnexa. This is consistent with patient's clinical picture and presenting symptoms. Patient feeling better after fluids and Zofran, Bentyl. Able to tolerate p.o. intake. Feel she is safe for discharge home on oral antibiotics for colitis given severity and rapid onset of symptoms. Started on Cipro/Flagyl. Given 1st doses in the ED. will also prescribe Bentyl, Zofran for home use. Patient feels comfortable going home, discussed strict return precautions. Recommended follow-up with GI. Discharged in stable condition. Medical Records Attestation: I reviewed the patient's medical records. Lab Data Attestation: I reviewed the patient's lab results. 02/27/25 21:03 02/27/25 21:03 Labs: Lab Results 02/27/25 02/27/25 Range/Units 21:00 21:03 WBC 7.0 (4.5-10.0) K/mm3 RBC 4.31 (4.2-5.4) M/mm3 Hgb 13.5 (12.0-15.0) g/dL Hct 40.0 (37.0-47.0) % MCV 92.8 (80-100) fl MCH 31.3 (26-34) pg MCHC 33.8 (32-36) g/dl RDW 12.0 (11.5-14.5) % Plt Count 346 (150-375) k/mm3 MPV 9.5 (7.4-10.4) fl Immature Gran % (Auto) 0.1 (0-0.5) % Neut % (Auto) 50.2 (45.5-73.1) % Lymph % (Auto) 41.3 (18.3-44.2) % [place] % (Auto) 6.5 (2.6-8.5) % Eos % (Auto) 1.2 (0-4.4) % Baso % (Auto) 0.7 (0.2-1.2) % Lymph # (Auto) 2.87 (0.9-3.2) K/mm3 [place] # (Auto) 0.5 (0.1-0.6) K/mm3 Eos # (Auto) 0.1 (0-0.3) K/mm3 Baso # (Auto) 0.1 (0.0-0.1) K/mm3 Abs Immat Gran (auto) 0.01 (0.00-0.031) K/mm3 Absolute Neuts (auto) 3.5 (1.3-6.7) K/mm3 Absolute Nucleated RBC 0.000 (0.0-0.012) K/mm3 Nucleated RBC % 0.0 (0.0-0.2) % Sodium 134 L (137-145) mmol/L Potassium 3.9 (3.4-5.0) mmol/L Chloride 100 (98-107) mmol/L Carbon Dioxide 24 (22-30) mmol/L Anion Gap 10 (4-12) mmol/L BUN 6 L (7-17) mg/dL Creatinine 0.62 L (0.7-1.0) mg/dL Estim Creat Clear Calc 96 ml/min Estimated GFR > 60 (59 - ) Glucose 94 (65-110) mg/dL Calcium 9.9 (8.4-10.2) mg/dL Total Bilirubin 1.1 (0.2-1.3) mg/dL AST 35 (14-36) U/L ALT 34 (6-35) U/L Alkaline Phosphatase 76 (38-126) U/L Total Protein 7.9 (6.3-8.2) g/dL Albumin 4.8 (3.5-5.1) g/dL Lipase 61 (23-300) U/L Urine Color Yellow (Yellow) Urine Appearance Clear (Clear) Urine pH 6.5 (5.0-9.0) Ur Specific [place] 1.007 (1.001-1.035) Urine Protein Negative (Negative) mg/dL Urine Glucose (UA) Negative (Negative) mg/dL Urine Ketones Trace H (Negative) mg/dL Ur Blood (Man) Negative (Negative) Urine Nitrate Negative (Negative) Urine Bilirubin Negative (Negative) Urine Urobilinogen 0.2 (<2.0) mg/dL Leukocyte Esterase Rfl Negative (Negative) JACINTA/UL POC Urine HCG, Qual Negative (Negative) Imaging Data Attestation: I personally reviewed and interpreted this imaging study as follows: Radiologist's impression: ITS Impressions Abdomen/Pelvis CT 02/27/25 21:33 IMPRESSION: 1. Pancolitis which could be infectious or inflammatory in etiology. 2. Small amount of ascites in the deep pelvis which could be reactive or physiologic. Discharge Plan Discharge Clinical Impression: Pancolitis Patient Disposition: Home Condition: Stable Instructions: Antibiotic Form, Irritable Bowel Syndrome (ED), Colitis (ED) Additional Instructions: Take antibiotics as prescribed. Avoid alcohol use while on Flagyl. Utilize zofran as needed for further nausea. Recommend Tylenol and Bentyl as needed for pain. Increase fluid intake. Recommend electrolyte rich fluids, gatorade, pedialyte, body armour. Recommend clear liquids or bland diet until symptoms improve, such as bananas, rice, applesauce, toast, or crackers. Follow up with your primary care doctor and/or GI for further evaluation. Return to the ED if you experience worsening or severe symptoms, unable to keep down food or drink, severe pain, fevers, rectal bleeding, vomiting blood, or any other symptoms of concern. Get better soon :) Patient Language: French Prescriptions: New dicyclomine 20 mg tablet 20 mg PO TID PRN (Reason: Abdominal Discomfort) Qty: 20 0RF ondansetron 4 mg tablet,disintegrating 4 mg PO Q8H PRN (Reason: nausea and vomiting) Qty: 20 0RF metronidazole 500 mg tablet 500 mg PO Q8H 7 Days Qty: 21 0RF ciprofloxacin HCl 500 mg tablet 500 mg PO Q12H 7 Days Qty: 14 0RF No Action dextroamphetamine-amphetamine [Adderall] 10 mg tablet 10 mg PO DAILY Adult Probiotic 3 billion cell capsule 3,000 mmu cells PO DAILY Rx Instructions: administer with a meal Vyvanse 20 mg tablet,chewable 20 mg PO DAILY Follow-up/Referrals: UNKNOWN,DOCTOR [Non-Staff] Time of Disposition: 22:11
[2025-02-27 21:03] LABS: BEDSIDEPREGUCG Negative (Negative)
[2025-02-27] MEDS: SODIUM CHLORIDE 0.9% IV 1,000 ML 999 ML IV CONT (21:07)
[2025-02-27] MEDS: ONDANSETRON INJ 4 MG/2 ML VIAL IV PUSH (21:07)
[2025-02-27 21:11] LABS: Hematocrit 40.0 % (37.0-47.0); Hemoglobin 13.5 g/dL (12.0-15.0); Immature Granulocyte Percent A 0.1 % (0-0.5); Lymphocytes Absolute Auto 2.87 K/mm3 (0.9-3.2); Mean Corpuscular HGB Conc 33.8 g/dl (32-36); Mean Corpuscular Hemoglobin 31.3 pg (26-34); Mean Corpuscular Volume 92.8 fl (80-100); Nucleated Red Blood Cells Absolute Auto 0.000 K/mm3 (0.0-0.012); Nucleated Red Blood Cells Perc 0.0 % (0.0-0.2); Platelet Count Result 346 k/mm3 (150-375); Red Blood Count 4.31 M/mm3 (4.2-5.4); White Blood Count 7.0 K/mm3 (4.5-10.0)
[2025-02-27 21:12] LABS: Add Urine Microscopic? NO; Appearance Urine Clear (Clear); Glucose Urine UA Negative (Negative); Leukocyte Esterase Ur Negative LEU/UL (Negative); Nitrate Urine Negative (Negative); Specific Grav Ur 1.007 (1.001-1.035)
[2025-02-27 21:32] LABS: Alanine Aminotransferase 34 U/L (6-35); Albumin Level 4.8 g/dL (3.5-5.1); Alkaline Phosphatase 76 U/L (38-126); Anion Gap 10 mmol/L (4-12); Aspartate Amino Transferase 35 U/L (14-36); Bilirubin,Total 1.1 mg/dL (0.2-1.3); Blood Urea Nitrogen 6 mg/dL (7-17); Calcium 9.9 mg/dL (8.4-10.2); Carbon Dioxide 24 mmol/L (22-30); Chloride 100 mmol/L (98-107); Estimated CRCL calculation 96 ml/min; Estimated Glomerular Filt Rate > 60; Glucose 94 mg/dL (65-110); Lipase 61 U/L (23-300); Potassium 3.9 mmol/L (3.4-5.0); Sodium 134 mmol/L (137-145); Total Protein 7.9 g/dL (6.3-8.2)
[2025-02-27] MEDS: DICYCLOMINE HCL 10 MG CAPSULE 20 MG PO (21:47)
[2025-02-27] MEDS: KETOROLAC 30 MG/ML VIAL (*BKC) IV PUSH (22:09)
[2025-02-27] MEDS: CIPROFLOXACIN 500 MG TAB PO (22:09)
[2025-02-28 00:27] LABS: Estimated CRCL calculation 86 ml/min; Estimated Glomerular Filt Rate > 60
== END 2025-02-27 22:41 | disposition home or self-care (01) ==
PROVIDERS: Emergency Provider Physician Assistant
DX: K52.9 Noninfective gastroenteritis and colitis, unspecified (principal); K58.1 Irritable bowel syndrome with constipation; F98.8 Other specified behavioral and emotional disorders with onset usually occurring in childhood and adolescence; Z79.899 Other long term (current) drug therapy
CPT/HCPCS: 36415; 74177; 80053; 81003; 81025; 83690; 85025; 96361; 96374; 96375; 99284; A9270; J1885; J2405; J7030; Q9967